=== PATIENT | female | born 1970 | race Two or more races ===

== ENCOUNTER 2017-03-25 15:30 | Emergency (ER) | payer SELFPAY | END 2017-03-25 15:33 | disposition left against medical advice (07) | LOC: ED 15:30 | DX: Z53.21 Procedure and treatment not carried out due to patient leaving prior to being seen by health care provider (principal) ==

== ENCOUNTER 2017-11-28 09:40 | Emergency (ER) | payer OTHER ==
[2017-11-28 09:49] VITALS: BP 138/117
--- NOTE | 2017-11-28 10:02 | ED Physician Documentation ---
PD HPI HEENT - Stated complaint Stated Complaint: MOUTH PX - Chief complaint Chief Complaint: Heent - History obtained from History obtained from: Patient, Family - History of Present Illness Timing - onset: How many days ago (3) Timing - duration: Days (3) Timing - details: Gradual onset, Still present Location: Tooth Improves: Medication Worsens: Position, Temperatures Associated symptoms: Facial swelling, Headache. No: Fever Similar symptoms before: Diagnosis (dental abscess) Recently seen: Not recently seen - Additional information Additional information: 47-year-old female with extensive prior dental decay has developed left upper molar pain and pain in her gum with swelling. She has had this happen to her once previously while she was with her daughter and this improved rapidly with oral antibiotic. Review of Systems Constitutional: denies: Fever Eyes: denies: Decreased vision Ears: denies: Ear pain Nose: reports: Congestion Throat: reports: Dental pain / toothache. denies: Sore throat Cardiac: denies: Chest pain / pressure Respiratory: reports: Cough GI: denies: Vomiting PD PAST MEDICAL HISTORY - Present Medications Home Medications: Ambulatory Orders Medication Instructions Recorded Confirmed Amoxicillin 875 mg PO BID #14 tablet 11/28/17 - Allergies Allergies/Adverse Reactions: Allergies Allergy/AdvReac Type Severity Reaction Status Date / Time No Known Drug Allergies Allergy Verified 05/09/13 18:52 - Social History Smoking Status: Former smoker PD ED PE NORMAL - Vitals Vital signs reviewed: Yes (Hypertensive) - General General: Alert and oriented X 3, No acute distress, Well developed/nourished - HEENT HEENT: Atraumatic, PERRL, EOMI, Other (There is extensive dental decay and missing teeth. #13 or 14 is loose and the gum overlying it is inflamed and tender without fluctuance or drainage. ) - Neck Neck: Supple, no meningeal sign, No bony TTP - Respiratory Respiratory: No respiratory distress - Derm Derm: Normal color, Warm and dry, No rash - Extremities Extremities: No deformity, No edema - Neuro Neuro: Alert and oriented X 3, nuclear medicine physician 2-12 intact, No motor deficit, No sensory deficit, Normal speech Eye Opening: Spontaneous Motor: Obeys Commands Verbal: Oriented GCS Score: 15 - Psych Psych: Normal mood, Normal affect PD ED PE EXPANDED - HEENT HEENT Visual: 1 - swelling, tenderness Results - Vitals Vitals: Vital Signs - 24 hr 11/28/17 09:45 Temperature 36.5 C Heart Rate 65 Respiratory 18 Rate Blood Pressure 138/117 H O2 Saturation 100 Oxygen O2 Source Room air PD MEDICAL DECISION MAKING - ED course Complexity details: considered differential, d/w patient, d/w family ED course: 47-year-old female with a dental infection has pain and swelling in her face she does not have fluctuance to the area she has had this happen previously and we will place her on some amoxicillin. She does have follow-up with the [facility]. Departure - Departure Disposition: Home, Self Care Clinical Impression: Dental abscess Condition: Stable Instructions: ED Abscess Dental Follow-Up: Usman Sutherland MD [Primary Care Provider] - Prescriptions: Amoxicillin 875 mg PO BID #14 tablet Comments: Today in the Emergency Department your blood pressure was elevated. This can happen from the stress of the visit itself, from a current illness or circumstance or from uncontrolled hypertension. If you take blood pressure medications take your usual mediations, have your blood pressure re-checked in an appropriate setting and follow up any elevation with your primary care doctor.
== END 2017-11-28 10:11 | disposition home or self-care (01) ==
LOC: ED 09:40
DX: K04.7 Periapical abscess without sinus (principal); R03.0 Elevated blood-pressure reading, without diagnosis of hypertension; Z87.891 Personal history of nicotine dependence
CPT/HCPCS: 99283

== ENCOUNTER 2017-12-16 15:39 | Emergency (ER) | payer OTHER | END 2017-12-16 16:03 | disposition left against medical advice (07) | LOC: ED 15:39 | DX: Z53.9 Procedure and treatment not carried out, unspecified reason (principal) ==

== ENCOUNTER 2018-05-26 07:38 | Emergency (ER) | payer MEDICAID, OTHER ==
[2018-05-26 07:49] VITALS: BP 141/95
[2018-05-26] MEDS ORDERED: ACETAMINOPHEN 325 MG TABLET PO STA (08:01)
[2018-05-26] MEDS ORDERED: AMOXICILLIN 250 MG CAPSULE PO STA (08:01)
[2018-05-26] MEDS ORDERED: IBUPROFEN 400 MG TABLET PO STA (08:01)
--- NOTE | 2018-05-26 08:04 | ED Physician Documentation ---
History of Present Illness - Stated complaint Stated Complaint: RT FACIAL SWELLING - Chief complaint Chief Complaint: Heent - Additonal information Additional information: hx from pt poor detition prior infections has dental appt next week but says she does not think she can afford the extraction as the quote was $450 pain and swelling upper r premolar no fever took a home HCG and it was neg 2 days ago Review of Systems Constitutional: denies: Fever Throat: reports: Dental pain / toothache : denies: Now EGA PD PAST MEDICAL HISTORY - Past Surgical History Past Surgical History: No - Present Medications Home Medications: Ambulatory Orders Medication Instructions Recorded Confirmed Amoxicillin 500 mg PO Q8H #30 capsule 05/26/18 - Allergies Allergies/Adverse Reactions: Allergies Allergy/AdvReac Type Severity Reaction Status Date / Time No Known Drug Allergies Allergy Verified 05/26/18 07:49 - Social History Does the pt smoke?: Yes Smoking Status: Former smoker Does the pt drink ETOH?: No Does the pt have substance abuse?: Yes - Immunizations Immunizations are current?: Yes - POLST Patient has POLST: No PD ED PE NORMAL - Vitals Vital signs reviewed: Yes - HEENT HEENT: Moist mucous membranes, Other (dental decay, some loose teeth, very TTP R upper premolar, some gum erythema, no visible abscess to drain, some cheek swelling and cervical adenpathy, no trismus or sublingual edema) - Cardiac Cardiac: RRR - Respiratory Respiratory: Clear bilaterally Results - Vitals Vitals: Vital Signs - 24 hr 05/26/18 05/26/18 07:46 08:39 Temperature 36.1 C L Heart Rate 119 H 71 Respiratory 18 14 Rate Blood Pressure 141/95 H O2 Saturation 100 100 Oxygen O2 Source Room air PD MEDICAL DECISION MAKING - ED course ED course: HR noted - pt is pain and anxious, has an infectious source but do not think the pt has systemic infection or sepsis, will rx ab PO outpt HR much better at dc - Sepsis Event Vital Signs: Vital Signs - 24 hr 05/26/18 05/26/18 07:46 08:39 Temperature 36.1 C L Heart Rate 119 H 71 Respiratory 18 14 Rate Blood Pressure 141/95 H O2 Saturation 100 100 Oxygen O2 Source Room air Departure - Departure Disposition: 01 Home, Self Care Clinical Impression: Dental abscess Condition: Good Instructions: ED Dental Abscess Facial Cellulitis Prescriptions: Amoxicillin 500 mg PO Q8H #30 capsule Comments: Follow up with your dentist as scheduled. Return if worse Forms: Activity restrictions Discharge Date/Time: 05/26/18 08:40
== END 2018-05-26 08:40 | disposition home or self-care (01) ==
LOC: ED 07:38
DX: K04.7 Periapical abscess without sinus (principal); Z87.891 Personal history of nicotine dependence
CPT/HCPCS: 99283; A9270

== ENCOUNTER 2018-09-22 09:40 | Emergency (ER) | payer MEDICAID ==
[2018-09-22 09:52] VITALS: BP 104/60
--- NOTE | 2018-09-22 11:46 | ED Physician Documentation ---
PD HPI HEENT - Stated complaint Stated Complaint: FACE SWELLING - Chief complaint Chief Complaint: Heent - History obtained from History obtained from: Patient - History of Present Illness Timing - onset: How many weeks ago (has had pain at two loose/wiggly teeth for few weeks. Has some swelling of right one. Concerned about infection. Does not have money for dentist. Has not tried calling [facility], did not know about it.) Timing - duration: Weeks Timing - details: Still present (worse the past couple of days, more consistent.), Waxing and waning Location: Tooth (two upper teeth are hurting, right and left sides.) Associated symptoms: No: Fever, Congestion Similar symptoms before: Diagnosis (cavities and dental infections) Recently seen: Not recently seen Review of Systems Constitutional: denies: Fever, Chills Nose: denies: Rhinorrhea / runny nose, Congestion Throat: reports: Dental pain / toothache. denies: Sore throat Respiratory: denies: Cough GI: denies: Nausea, Vomiting Skin: denies: Rash, Lesions PD PAST MEDICAL HISTORY - Past Medical History Cardiovascular: None Respiratory: None Neuro: None GI: Other - Past Surgical History Past Surgical History: No - Present Medications Home Medications: Ambulatory Orders Medication Instructions Recorded Confirmed Clindamycin HCl [Clindamycin 300MG 300 mg PO TID #21 capsule 09/22/18 CAP] Hydrocodone/Acetaminophen [[place] 1 each PO Q6H PRN #20 tablet 09/22/18 5-325 Tablet] Naproxen 375 mg PO BID #20 tablet 09/22/18 - Allergies Allergies/Adverse Reactions: Allergies Allergy/AdvReac Type Severity Reaction Status Date / Time No Known Drug Allergies Allergy Verified 09/22/18 09:52 - Social History Does the pt smoke?: Yes Smoking Status: Former smoker Does the pt drink ETOH?: No Does the pt have substance abuse?: Yes - Immunizations Immunizations are current?: Yes - POLST Patient has POLST: No PD ED PE NORMAL - Vitals Vital signs reviewed: Yes - General General: Alert and oriented X 3, No acute distress, Well developed/nourished - HEENT HEENT: No: Dentition benign (poor dentition generally. Two teeth upper, one on right and one on left, are very loos, with decay apparent of tooth. So presume the roots are decayed. She asks if I might just pull them out. Some swelling at base of right upper one, but no fluctuance felt. ) - Neck Neck: Supple, no meningeal sign, No adenopathy - Cardiac Cardiac: RRR, No murmur - Respiratory Respiratory: Clear bilaterally - Derm Derm: Normal color, Warm and dry - Neuro Neuro: Alert and oriented X 3, No motor deficit, Normal speech Results - Vitals Vitals: Oxygen O2 Source Room air PD MEDICAL DECISION MAKING - ED course Complexity details: considered differential (she has very loose tooth, wiggles. Tempting to just pull it out as she is requesting, but I affirmed with her that that is not in our usual scope of practice and we don't have the tools to do it correctly, is for dentist to do. ), d/w patient Departure - Departure Disposition: 01 Home, Self Care Clinical Impression: Infected dental caries Condition: Stable Record reviewed to determine appropriate education?: Yes Instructions: ED Cavity Dental Follow-Up: [facility] [Provider Group] Prescriptions: Clindamycin HCl [Clindamycin 300MG CAP] 300 mg PO TID #21 capsule Hydrocodone/Acetaminophen [[place] 5-325 Tablet] 1 each PO Q6H PRN #20 tablet PRN Reason: Pain Naproxen 375 mg PO BID #20 tablet Comments: Call [facility] in [place] [phone] For earliest appointment. For now we will treat the infection and inflammation with naproxen and clindamycin to take both with food so that do not bother her stomach. Add Tylenol or hydrocodone if needed for pain. Recheck if not improving over the next few days. Follow-up with the dental clinic for more definitive care of the teeth. Discharge Date/Time: 09/22/18 12:27
[2018-09-22] MEDS ORDERED: NAPROXEN 250 MG TABLET PO STA (12:12)
[2018-09-22] MEDS ORDERED: HYDROcod/ACETAM 5/325 MG TABLET PO STA (12:12)
[2018-09-22] MEDS ORDERED: CLINDAMYCIN 150 MG CAPSULE PO STA (12:12)
== END 2018-09-22 12:27 | disposition home or self-care (01) ==
LOC: ED 09:40
DX: K02.9 Dental caries, unspecified (principal); K04.7 Periapical abscess without sinus; Z87.891 Personal history of nicotine dependence
CPT/HCPCS: 99283; A9270

== ENCOUNTER 2018-10-02 04:53 | Emergency (ER) | payer MEDICAID ==
--- NOTE | 2018-10-02 05:07 | ED Physician Documentation ---
PD HPI FEMALE - Stated complaint Stated Complaint: FEMALE - Chief complaint Chief Complaint: UTI - History obtained from History obtained from: Patient - History of Present Illness Timing - onset: Last night Timing - details: Gradual onset Associated symptoms: Dysuria, Urinary frequency. No: Fever Contributing factors: No: Recently seen: Not recently seen Review of Systems Constitutional: denies: Fever GI: denies: Abdominal Pain : denies: Dysuria, Frequency Musculoskeletal: denies: Back pain PD PAST MEDICAL HISTORY - Past Medical History Cardiovascular: None Respiratory: None Neuro: None GI: Other - Past Surgical History Past Surgical History: No - Present Medications Home Medications: Ambulatory Orders Medication Instructions Recorded Confirmed Clindamycin HCl [Clindamycin 300MG 300 mg PO TID #21 capsule 09/22/18 10/02/18 CAP] Hydrocodone/Acetaminophen [[place] 1 each PO Q6H PRN #20 tablet 09/22/18 10/02/18 5-325 Tablet] Naproxen 375 mg PO BID #20 tablet 09/22/18 10/02/18 Cephalexin [Keflex] 500 mg PO Q6H #27 capsule 10/02/18 Phenazopyridine HCl [Pyridium] 200 mg PO TID PRN #6 tablet 10/02/18 - Allergies Allergies/Adverse Reactions: Allergies Allergy/AdvReac Type Severity Reaction Status Date / Time No Known Drug Allergies Allergy Verified 10/02/18 04:58 - Social History Does the pt smoke?: Yes Smoking Status: Former smoker Does the pt drink ETOH?: No Does the pt have substance abuse?: Yes - Immunizations Immunizations are current?: Yes - POLST Patient has POLST: No PD ED PE NORMAL - Vitals Vital signs reviewed: Yes - General General: Alert and oriented X 3, No acute distress, Well developed/nourished - Abdomen Abdomen: Soft, Non tender - Back Back: No CVA TTP Results - Vitals Vitals: Vital Signs - 24 hr 10/02/18 04:56 Temperature 36.2 C L Heart Rate 67 Respiratory 16 Rate Blood Pressure 106/57 L O2 Saturation 100 Oxygen O2 Source Room air - Labs Labs: Laboratory Tests 10/02/18 05:15 Urine Color YELLOW Urine Clarity HAZY Urine pH 6.0 Ur Specific [place] >=1.030 H Urine Protein 30 H Urine Glucose (UA) NEGATIVE Urine Ketones NEGATIVE Urine Occult Blood MODERATE H Urine Nitrite NEGATIVE Urine Bilirubin NEGATIVE Urine Urobilinogen 0.2 (NORMAL) Ur Leukocyte Esterase SMALL H Urine RBC 6-10 H Urine WBC >25 H Ur Squamous Epith Cells FEW Squamous Urine Bacteria Few Ur Microscopic Review INDICATED Urine Culture Comments INDICATED Urine HCG, Qual NEGATIVE PD MEDICAL DECISION MAKING - ED course Complexity details: reviewed old records, considered differential, d/w patient ED course: c/o dysuria, urinary frequency with sensation of incomplete voiding. symptoms started last night. She was T+R from [facility] ED 10 days ago, rx naproxen, vicodin, and clindamycin for dental-related c/o. She says the dental pain has improved. She has all three of the prescriptions with her and I note there are still several doses of each of the three medications in their respective bottles. I explained that the pain medications are as needed, but the antibiotic (Clindamycin) should have been finished by now if taken as prescribed. Patient says she didn't realize the importance of taking the antibiotic exactly as prescribed. I recommended she stop the clindamycin and take keflex, which should have adequate coverage for both UTI and dental infection. I instructed her to take the keflex as prescribed until the bottle is empty unless she has adverse effects. Departure - Departure Disposition: 01 Home, Self Care Clinical Impression: Urinary tract infection Condition: Good Instructions: ED UTI Cystitis Female Prescriptions: Cephalexin [Keflex] 500 mg PO Q6H #27 capsule Phenazopyridine HCl [Pyridium] 200 mg PO TID PRN #6 tablet PRN Reason: dysuria Discharge Date/Time: 10/02/18 05:59
[2018-10-02 05:10] VITALS: BP 106/57
[2018-10-02 05:23] LABS: BILIRUBIN,URINE NEGATIVE (NEGATIVE); GLUCOSE, URINE (UA) NEGATIVE (NEGATIVE); KETONES,URINE (UA) NEGATIVE (NEGATIVE); LEUKOCYTE ESTERASE, URINE SMALL (NEGATIVE); NITRITE,URINE NEGATIVE (NEGATIVE); OCCULT BLOOD,URINE MODERATE (NEGATIVE); PROTEIN,URINE 30 mg/dL (NEGATIVE); UROBILINOGEN,URINE 0.2 (NORMAL) E.U./dL (NORMAL)
[2018-10-02 05:26] LABS: CLARITY,URINE HAZY (CLEAR); HCG UR QUAL NEGATIVE
[2018-10-02 05:29] LABS: BACTERIA,URINE Few /HPF (None Seen); SQUAMOUS EPITHELIAL CELL,UR FEW Squamous (<= Few)
[2018-10-02] MEDS ORDERED: cephALEXin 250 MG CAPSULE PO STA (05:45)
[2018-10-02] MEDS ORDERED: PHENAZOPYRIDINE 100 MG TABLET PO STA (05:45)
== END 2018-10-02 05:59 | disposition home or self-care (01) ==
LOC: ED 04:53
DX: N39.0 Urinary tract infection, site not specified (principal); Z87.891 Personal history of nicotine dependence
CPT/HCPCS: 81001; 81025; 87086; 87181; 99283; A9270; 81003

== ENCOUNTER 2019-06-04 11:30 | Emergency (ER) | payer MEDICAID ==
[2019-06-04 11:47] VITALS: BP 105/65
[2019-06-04 12:31] LABS: BILIRUBIN,URINE NEGATIVE (NEGATIVE); GLUCOSE, URINE (UA) NEGATIVE (NEGATIVE); KETONES,URINE (UA) NEGATIVE (NEGATIVE); LEUKOCYTE ESTERASE, URINE SMALL (NEGATIVE); NITRITE,URINE NEGATIVE (NEGATIVE); OCCULT BLOOD,URINE SMALL (NEGATIVE); PROTEIN,URINE TRACE mg/dL (NEGATIVE); UROBILINOGEN,URINE 0.2 (NORMAL) E.U./dL (NORMAL)
[2019-06-04 12:33] LABS: CLARITY,URINE CLOUDY (CLEAR); HCG UR QUAL NEGATIVE
[2019-06-04 12:40] LABS: BACTERIA,URINE Few /HPF (None Seen); RBC,URINE 0-5 /HPF (0-5); SQUAMOUS EPITHELIAL CELL,UR FEW Squamous (<= Few)
--- NOTE | 2019-06-04 12:49 | ED Physician Documentation ---
History of Present Illness - Stated complaint Stated Complaint: FEMALE - Chief complaint Chief Complaint: General - History obtained from History obtained from: Patient - Additonal information Additional information: Patient is a 48-year-old female presenting with less than 1 day of suprapubic tenderness that is now resolved but is otherwise associated with dysuria, frequency, urgency and incomplete emptying.Patient denies fever, back pain, nausea, vomiting. Patient's last bowel movement was yesterday. Patient's last menstrual period was about 1 month ago within normal limits. No other improving or worsening factors noted. Review of Systems Constitutional: denies: Fever GI: reports: Abdominal Pain. denies: Nausea, Vomiting, Diarrhea : reports: Dysuria, Frequency, Hesitancy PD PAST MEDICAL HISTORY - Past Medical History Cardiovascular: None Respiratory: None Neuro: None GI: Other - Past Surgical History Past Surgical History: No - Present Medications Home Medications: Ambulatory Orders Medication Instructions Recorded Confirmed Nitrofurantoin Monohyd/M-Cryst 100 mg PO BID 7 Days capsule 06/04/19 [Macrobid 100 mg Capsule] - Allergies Allergies/Adverse Reactions: Allergies Allergy/AdvReac Type Severity Reaction Status Date / Time No Known Drug Allergies Allergy Verified 06/04/19 11:47 - Social History Does the pt smoke?: Yes Smoking Status: Former smoker Does the pt drink ETOH?: No Does the pt have substance abuse?: Yes - Immunizations Immunizations are current?: Yes - POLST Patient has POLST: No PD ED PE NORMAL - Vitals Vital signs reviewed: Yes - General General: Alert and oriented X 3, No acute distress, Well developed/nourished - HEENT HEENT: Atraumatic, Moist mucous membranes - Neck Neck: Supple, no meningeal sign - Respiratory Respiratory: No respiratory distress - Abdomen Abdomen: Soft, Non tender, Non distended - Back Back: No CVA TTP - Derm Derm: Normal color, Warm and dry, No rash - Extremities Extremities: No deformity, No tenderness to palpate - Neuro Neuro: Alert and oriented X 3, No motor deficit, No sensory deficit - Psych Psych: Normal mood, Normal affect Results - Vitals Vitals: Vital Signs - 24 hr 06/04/19 11:45 Temperature 36.5 C Heart Rate 58 L Respiratory 17 Rate Blood Pressure 105/65 O2 Saturation 100 Oxygen O2 Source Room air - Labs Labs: Laboratory Tests 06/04/19 11:47 Urine Color YELLOW Urine Clarity CLOUDY Urine pH 7.0 Ur Specific [place] 1.010 Urine Protein TRACE Urine Glucose (UA) NEGATIVE Urine Ketones NEGATIVE Urine Occult Blood SMALL H Urine Nitrite NEGATIVE Urine Bilirubin NEGATIVE Urine Urobilinogen 0.2 (NORMAL) Ur Leukocyte Esterase SMALL H Urine RBC 0-5 Urine WBC 11-25 H Ur Squamous Epith Cells FEW Squamous Urine Bacteria Few Ur Microscopic Review INDICATED Urine Culture Comments INDICATED Urine HCG, Qual NEGATIVE PD MEDICAL DECISION MAKING - ED course Complexity details: reviewed old records, reviewed results, considered differential, d/w patient ED course: Patient presenting with uncomplicated UTI. Do not have high suspicion for pyelonephritis or nephrolithiasis at this time. Also low suspicion for , ectopic , ovarian pathology, other pelvic pathology or intra-abdominal complications. Physical exam is extremely benign. Discussed use of oral antibiotics, other supportive cares, return precautions and follow- up. Patient voiced understanding and is comfortable with discharge plan. Departure - Departure Disposition: 01 Home, Self Care Clinical Impression: Urinary tract infection Qualifiers: Urinary tract infection type: acute cystitis Hematuria presence: without hematuria Qualified Code(s): N30.00 - Acute cystitis without hematuria Condition: Good Instructions: ED UTI Cystitis Female Follow-Up: your,doctor [Other] - Within 3 Days Prescriptions: Nitrofurantoin Monohyd/M-Cryst [Macrobid 100 mg Capsule] 100 mg PO BID 7 Days capsule Comments: Recommend hydration, healthy diet, and follow-up with primary care physician in next 2 to 3 days. Please take antibiotics as prescribed to treat bladder infection. Recommend taking antibiotics with small amount of food to avoid upset stomach. Return to ED sooner if experience worsening symptoms or have other concerns.
== END 2019-06-04 13:00 | disposition home or self-care (01) ==
LOC: ED 11:30
DX: N30.00 Acute cystitis without hematuria (principal); Z87.891 Personal history of nicotine dependence
CPT/HCPCS: 81001; 81003; 81025; 87077; 87086; 87181; 99283

== ENCOUNTER 2020-11-10 18:18 | Outpatient (CLI) | payer MEDICAID | END 2020-11-10 18:19 | disposition critical access hospital (66) | LOC: EMS 18:18 | PROVIDERS: ATTEND Surgery | DX: Z04.6 Encounter for general psychiatric examination, requested by authority (principal) | CPT/HCPCS: A0425; A0429; A0999 ==

== ENCOUNTER 2020-11-10 18:44 | Inpatient (IN) | payer MEDICAID ==
[~2020-11-10 18:44] MED LIST: KETAMINE 500 MG/10 ML VIAL IM STA
[2020-11-10] MEDS ORDERED: OLANZapine 10 MG VIAL IM STA (18:45)
[2020-11-10] MEDS ORDERED: OLANZapine 10 MG VIAL IM ONE (18:57)
--- NOTE | 2020-11-10 18:57 | ED Physician Documentation ---
PD HPI MHE - Stated complaint Stated Complaint: MHE - History obtained from History obtained from: EMS - Additional information Additional information: 50-year-old woman was brought in by ambulance. Reportedly laying in the road saying that she was Felipe and her heavenly father had told her to lay in the road. Initially was uncooperative with paramedics, but reportedly relatively calm during her ambulance stay. Initial evaluation was in the ambulance bay because she had become quite agitated getting out of the ambulance and is actively fighting paramedics. No history is available from the patient directly as she is fighting and nonverbal, that said review of the chart does not show previous visits for mental health issues. Review of Systems Unable to obtain: Uncooperative PD PAST MEDICAL HISTORY - Past Medical History Cardiovascular: None Respiratory: None Neuro: None GI: Other - Past Surgical History Past Surgical History: No - Present Medications Home Medications: Ambulatory Orders Medication Instructions Recorded Confirmed No Known Home Medications 11/10/20 11/10/20 - Allergies Allergies/Adverse Reactions: Allergies Allergy/AdvReac Type Severity Reaction Status Date / Time No Known Drug Allergies Allergy Verified 06/04/19 11:47 - Social History Does the pt smoke?: Yes Smoking Status: Former smoker Does the pt drink ETOH?: No Does the pt have substance abuse?: Yes - Immunizations Immunizations are current?: Yes - POLST Patient has POLST: No PD ED PE NORMAL - Vitals Vital signs reviewed: Yes - General General: Other (She is thrashing about and fighting with the paramedics. She seems quite strong with excellent strength in all 4 extremities.) - HEENT HEENT: Other (Pupils slightly dilated but reactive) - Neck Neck: Supple, no meningeal sign, No bony TTP - Cardiac Cardiac: RRR, No murmur - Respiratory Respiratory: No respiratory distress, Clear bilaterally - Abdomen Abdomen: Non tender - Back Back: No CVA TTP, No spinal TTP - Derm Derm: Normal color, Warm and dry - Extremities Extremities: No edema, No calf tenderness / cord - Neuro Eye Opening: Spontaneous Motor: Localizes to Pain Verbal: Incomprehensible GCS Score: 11 Results - Vitals Vitals: Vital Signs - 24 hr 11/10/20 11/10/20 11/10/20 18:59 19:04 19:29 Temperature 37.5 C 37.5 C Heart Rate 112 H 105 H 90 Respiratory 30 H 24 14 Rate Blood Pressure 130/78 130/91 H 108/53 L O2 Saturation 97 97 100 11/10/20 11/10/20 19:59 20:29 Temperature 36.8 C 36.7 C Heart Rate 82 88 Respiratory 20 20 Rate Blood Pressure 90/59 L 102/52 L O2 Saturation 100 100 Oxygen O2 Source Room air - Labs Labs: Laboratory Tests 11/10/20 11/10/20 11/10/20 19:20 19:20 19:20 WBC 13.6 H RBC 3.92 L Hgb 13.0 Hct 38.8 MCV 99.0 MCH 33.2 H MCHC 33.5 RDW 12.5 Plt Count 341 MPV 9.8 Neut # (Auto) 11.4 H Lymph # (Auto) 0.9 L [place] # (Auto) 1.2 H Eos # (Auto) 0.0 Baso # (Auto) 0.1 Absolute Nucleated RBC 0.00 Nucleated RBC % 0.0 Sodium 136 Potassium 3.4 L Chloride 101 Carbon Dioxide 19 L Anion Gap 16.0 H BUN 33 H Creatinine 1.1 H Estimated GFR (MDRD) 53 L Glucose 105 H Calcium 9.6 Total Bilirubin 2.8 H AST 60 H ALT 31 Alkaline Phosphatase 63 Total Creatine Kinase 1250 H* Total Protein 7.5 Albumin 4.9 Globulin 2.6 Albumin/Globulin Ratio 1.9 Lipase 21 L TSH 2.23 Urine Color Urine Clarity Urine pH Ur Specific [facility] Urine Protein Urine Glucose (UA) Urine Ketones Urine Occult Blood Urine Nitrite Urine Bilirubin Urine Urobilinogen Ur Leukocyte Esterase Ur Microscopic Review Urine Culture Comments Urine HCG, Qual Nasal Adenovirus (PCR) Nasal B. parapertussis DNA (PCR) Nasal Coronavir 229E PCR Nasal Coronavir HKU1 PCR Nasal Coronavir NL63 PCR Nasal Coronavir OC43 PCR Nasal Enterovir/Rhinovir PCR Nasal Influenza B PCR Nasal Influenza A PCR Nasal Parainfluen 1 PCR Nasal Parainfluen 2 PCR Nasal Parainfluen 3 PCR Nasal Parainfluen 4 PCR Nasal RSV (PCR) Nasal B.pertussis DNA PCR Nasal C.pneumoniae (PCR) Hamzah Human Metapneumo PCR Nasal M.pneumoniae (PCR) Nasal SARS-CoV-2 (PCR) Salicylates < 6.0 Urine Opiates Screen Ur Oxycodone Screen Urine Methadone Screen Ur Propoxyphene Screen Acetaminophen < 10 L Ur Barbiturates Screen Ur Tricyclics Screen Ur Phencyclidine Scrn Ur Amphetamine Screen U Methamphetamines Scrn U Benzodiazepines Scrn Urine Cocaine Screen U Cannabinoids Screen Ethyl Alcohol < 5.0 11/10/20 11/10/20 19:45 19:58 WBC RBC Hgb Hct MCV MCH MCHC RDW Plt Count MPV Neut # (Auto) Lymph # (Auto) [place] # (Auto) Eos # (Auto) Baso # (Auto) Absolute Nucleated RBC Nucleated RBC % Sodium Potassium Chloride Carbon Dioxide Anion Gap BUN Creatinine Estimated GFR (MDRD) Glucose Calcium Total Bilirubin AST ALT Alkaline Phosphatase Total Creatine Kinase Total Protein Albumin Globulin Albumin/Globulin Ratio Lipase TSH Urine Color DARK YELLOW Urine Clarity HAZY Urine pH 5.5 Ur Specific [facility] >=1.030 H Urine Protein 30 H Urine Glucose (UA) NEGATIVE Urine Ketones 40 H Urine Occult Blood TRACE-INTA Urine Nitrite NEGATIVE Urine Bilirubin MODERATE H Urine Urobilinogen 0.2 (NORMAL) Ur Leukocyte Esterase NEGATIVE Ur Microscopic Review NOT INDICATED Urine Culture Comments NOT INDICATED Urine HCG, Qual NEGATIVE Nasal Adenovirus (PCR) NOT DETECTED Nasal B. parapertussis DNA (PCR) NOT DETECTED Nasal Coronavir 229E PCR NOT DETECTED Nasal Coronavir HKU1 PCR NOT DETECTED Nasal Coronavir NL63 PCR NOT DETECTED Nasal Coronavir OC43 PCR NOT DETECTED Nasal Enterovir/Rhinovir PCR NOT DETECTED Nasal Influenza B PCR NOT DETECTED Nasal Influenza A PCR NOT DETECTED Nasal Parainfluen 1 PCR NOT DETECTED Nasal Parainfluen 2 PCR NOT DETECTED Nasal Parainfluen 3 PCR NOT DETECTED Nasal Parainfluen 4 PCR NOT DETECTED Nasal RSV (PCR) NOT DETECTED Nasal B.pertussis DNA PCR NOT DETECTED Nasal C.pneumoniae (PCR) NOT DETECTED Hamzah Human Metapneumo PCR NOT DETECTED Nasal M.pneumoniae (PCR) NOT DETECTED Nasal SARS-CoV-2 (PCR) NOT DETECTED Salicylates Urine Opiates Screen NEGATIVE Ur Oxycodone Screen NEGATIVE Urine Methadone Screen NEGATIVE Ur Propoxyphene Screen NEGATIVE Acetaminophen Ur Barbiturates Screen NEGATIVE Ur Tricyclics Screen NEGATIVE Ur Phencyclidine Scrn NEGATIVE Ur Amphetamine Screen NEGATIVE U Methamphetamines Scrn NEGATIVE U Benzodiazepines Scrn NEGATIVE Urine Cocaine Screen NEGATIVE U Cannabinoids Screen POSITIVE H Ethyl Alcohol PD MEDICAL DECISION MAKING - ED course ED course: 50-year-old woman presents by ambulance for an acute psychosis. She is uncooperative with physical and history. Required both chemical and physical restraint for patient and staff safety. Labs were drawn and notable for seemingly modest rhabdomyolysis but actually has some acute kidney injury noting that her baseline creatinine is about 0.8 with high BUN. Surprisingly her methamphetamine screen is negative, UDS only positive for marijuana. No alcohol on board. Hard to say at this point if this is a drug related psychosis or a new organic psychosis. Given the acute kidney injury and rhabdomyolysis she will be admitted for further evaluation and treatment. And I spoke with Dr. Ventura for same at 8:43 PM. She was administered 1 L of saline wide open and then 250 mL/h here. Departure - Departure Disposition: [facility] DC/Xfer Clinical Impression: JUAN (acute kidney injury) Psychosis Qualifiers: Psychosis type: unspecified psychosis type Qualified Code(s): F29 - Unspecified psychosis not due to a substance or known physiological condition Rhabdomyolysis Qualifiers: Rhabdomyolysis type: non-traumatic Qualified Code(s): M62.82 - Rhabdomyolysis Condition: Fair Face to Face for Restraints - Immediate Situation Face to Face Evaluation Date: 11/10/20 Face to Face Evaluation Time: 18:56 Restraint Situation: Locking, Physical Hold, Chemical Patient's Reactions to the Intervention: Fighting restraints, Other (Agitated, fighting with staff, trying to hit staff) - Behavioral Condition Attitude: Other (agitated, uncooperative) Behavior: Uncooperative, Agitated Orientation: Not oriented to person, place, time, and situation Mood: Angry - Evaluation Review of Systems: Unable to review systems as she is nonverbal Pertinent History/Illicit Drugs/Medications/Results: None known, methamphetamine suspected. - Plan Need to Continue or Terminate Violent or Chemical Restraint: Will need to continue both physical and chemical restraints until calmer.
[2020-11-10] MEDS ORDERED: LORazepam 2 MG/ML VIAL IM STA (19:06)
[2020-11-10 19:42] LABS: BASOPHILS # (AUTO) 0.1 10^3/uL (0.0-0.1); BASOPHILS % (AUTO) 0.4 %; EOSINOPHILS % (AUTO) 0.1 %; LYMPHOCYTES # (AUTO) 0.9 10^3/uL (1.5-3.5); LYMPHOCYTES % (AUTO) 6.9 %; MEAN CORPUSCULAR HEMOGLOBIN 33.2 pg (27.0-31.0); MEAN CORPUSCULAR HGB CONC 33.5 g/dL (32.0-36.0); MEAN PLATELET VOLUME 9.8 fL (7.9-10.8); MONOCYTES # (AUTO) 1.2 10^3/uL (0.0-1.0); MONOCYTES % (AUTO) 8.5 %; NEUTROPHILS # (AUTO) 11.4 10^3/uL (1.5-6.6); NEUTROPHILS % (AUTO) 83.8 %; PLT - PLATELET COUNT 341 10^3/uL (130-450); RED BLOOD COUNT 3.92 10^6/uL (4.20-5.40); RED CELL DISTRIBUTION WIDTH 12.5 % (12.0-15.0); WHITE BLOOD COUNT 13.6 x10^3/uL (4.8-10.8)
[2020-11-10 19:52] LABS: MUDS CUTOFF CONCENTRATIONS CUTOFF CONC BELOW:
[2020-11-10 19:55] LABS: BILIRUBIN,URINE MODERATE (NEGATIVE); GLUCOSE, URINE (UA) NEGATIVE (NEGATIVE); KETONES,URINE (UA) 40 mg/dL (NEGATIVE); LEUKOCYTE ESTERASE, URINE NEGATIVE (NEGATIVE); NITRITE,URINE NEGATIVE (NEGATIVE); OCCULT BLOOD,URINE TRACE-INTA (NEGATIVE); PH,URINE 5.5 PH (5.0-7.5); PROTEIN,URINE 30 mg/dL (NEGATIVE); UROBILINOGEN,URINE 0.2 (NORMAL) E.U./dL (NORMAL)
[2020-11-10 20:05] LABS: ACETAMINOPHEN < 10 ug/mL (10-30); ALBUMIN 4.9 g/dL (3.2-5.5); ALBUMIN/GLOBULIN RATIO 1.9 (1.0-2.2); ALKALINE PHOSPHATASE 63 IU/L (42-121); ALT ALANINE AMINOTRANSFERASE 31 IU/L (10-60); AST ASPARTATE AMINOTRANSFERASE 60 IU/L (10-42); BILIRUBIN,TOTAL 2.8 mg/dL (0.2-1.0); BUN - BLOOD UREA NITROGEN 33 mg/dL (6-20); CALCIUM 9.6 mg/dL (8.5-10.3); CARBON DIOXIDE - CO2 19 mmol/L (21-32); CHLORIDE 101 mmol/L (101-111); CK- CREATINE KINASE 1250 IU/L (22-269); CREATININE 1.1 mg/dL (0.4-1.0); GLUCOSE 105 mg/dL (70-100); LIPASE 21 U/L (22-51); SALICYLATE < 6.0 mg/dL; SODIUM 136 mmol/L (135-145); TOTAL PROTEIN 7.5 g/dL (6.7-8.2)
[2020-11-10] MEDS ORDERED: SODIUM CHLORIDE 0.9% 1,000 ML IV STA ×2 (20:06)
[2020-11-10 20:12] LABS: CLARITY,URINE HAZY (CLEAR); HCG UR QUAL NEGATIVE
[2020-11-10 20:13] LABS: AMPHETAMINE SCREEN,URINE NEGATIVE (NEGATIVE); BENZODIAZEPINES SCREEN, URINE NEGATIVE (NEGATIVE); COCAINE SCREEN URINE NEGATIVE (NEGATIVE); METHADONE SCREEN, URINE NEGATIVE (NEGATIVE); METHAMPHETAMINES SCREEN, URINE NEGATIVE (NEGATIVE); OPIATE SCREEN, URINE NEGATIVE (NEGATIVE); OXYCODONE SCREEN, URINE NEGATIVE (NEGATIVE); PROPOXYPHENE SCREEN, URINE NEGATIVE (NEGATIVE); TRICYCLIC ANTIDEPRESSANT,URINE NEGATIVE (NEGATIVE)
[2020-11-10] MEDS ORDERED: SODIUM CHLORIDE FLUSH 0.9% 10 ML SYRINGE IVP PRN (20:58)
[2020-11-10 21:08] LABS: C. PNEUMONIAE- RESP PCR PANEL NOT DETECTED
[2020-11-10] MEDS: FAMOTIDINE 20 MG/2 ML VIAL IVP SCH (22:05)
[2020-11-10] MEDS: DEXTROSE 5%-0.9% NACL 1,000 ML IV SCH (22:08)
--- NOTE | 2020-11-10 23:42 | HISTORY & PHYSICAL EXAMINATION ---
DATE OF SERVICE: 11/10/2020 Physician: Adriana Ventura MD HISTORY OF PRESENT ILLNESS: This is a 50-year-old white female with a history of smoking. She was at the age of 42. This patient was brought in by ambulance for multiple 911 calls because people reportedly saw her lying on the road and saying that she was :Felipe and that her heavenly father had told her to lie in the road". At the scene, she was initially not cooperative with paramedics, but was eventually brought in by ambulance calm; however, in transfer from ambulance into the ER, she became combative and agitated and started actively fighting the paramedics. We could not give any history since she was fighting and nonverbal, except for stating the reason that she was on the road. She has never had previous visits for mental health issues according to what our records show. She required physical restraints for violent behavor and IV sedation using Zyprexa and Ketamine, and was able to be calmed. Following this, she has intermittently awoken, and was put on soft restraints and would answer "okay" to the nurse, but would fall back asleep again. Details of what prewceded today's presentation, therefore, are not available because of her now being somnolent. In the ER, she was found to have rhabdomyolysis with CK of 1250 and acute kidney injury, mild, with a creatinine of 1.1, her baseline is 0.8. Her toxicology workup showed no methamphetamine, no alcohol, but positive marijuana. She is being admitted to inpatient status on the Hospitalist service for managing rhabdomyolysis, JUAN and acute psychosis. PAST MEDICAL HISTORY: Negative except smoking. MEDICATIONS: None ALLERGIES: None. SOCIAL HISTORY: She is a smoker, unknown amount, the record states there is no past alcohol abuse or drug abuse history. FAMILY HISTORY: Not available since she is obtunded and cannot answer questions. REVIEW OF SYSTEMS: This was done from chart review of prior notes and the pertinent positives are listed, the rest are negative. PHYSICAL EXAM GENERAL: Obtunded white female. She is in no distress. VITAL SIGNS: Blood pressure 103/67, heart rate 76 and regular, afebrile, room air saturation 100%. HEENT: She is somnolent, but arouses to name and to touch and murmurs a response or just a one word answer and then falls back asleep. Her lips are very dry and cracked. Her pupils are reactive and normal size. NECK: No JVD or carotid bruits. CHEST: Clear. HEART: Normal heart sounds without murmur. ABDOMEN: Soft. No organomegaly or distention. EXTREMITIES: No clubbing, cyanosis, or edema. NEUROLOGIC: Currently obtunded. LABORATORY DATA: Sodium 136, potassium 3.4, carbon dioxide 19, anion gap 16, BUN 33, creatinine 1.1, bilirubin 2.8, AST 60, ALT 31. CK 1250. Normal albumin of 4.9. Lipase normal at 21. TSH normal at 2.23. White blood count elevated at 13.6, hemoglobin 13, normal MCV of 99, normal platelet count of 341. Urinalysis showed high specific gravity, high protein, high ketones, moderate bilirubin, and no leukocyte esterase or nitrites, and no culture was indicated. Her [employer] showed negative COVID result. Her toxicology was negative entirely except for cannabis present. No imaging was done. No EKG was done. IMPRESSION/DIAGNOSES 1. Rhabdomyolysis. 2. Acute kidney injury. 3. Acute psychosis. 4. Hypokalemia. 5. Elevated bilirubin. 6. Elevated liver function tests. 7. Elevated white blood count, possibly a phase reactant since there appeared to be no signs of infection. 8. Tobacco user. PLAN: Admit the patient to Inpatient status. Order one-to-one monitoring because of her psychosis and continue with the soft restraints. Continue IV fluids that were started with a bolus in the ER for managing her rhabdomyolysis and JUAN. Follow her total CK and CMP daily. Depending on results of tomorrow's bilirubin and liver function tests, consideration for CT of the abdomen. If she is more awake, start a clear liquid diet to advance to a pureed diet, she will need to be fed tonight and then advance tomorrow as she awakens. She will need a Social Work consult regarding her psychosis and possible transfer to an inpatient psych location for management, once she is medically cleared. Nicotine patch will be ordered for cigarette urges. DEEP VENOUS THROMBOSIS PROPHYLAXIS: SCDs. CODE STATUS: FULL CODE. ATTESTATION: Patient is expected to be discharged or transferred to another facility within 96 hours: Yes. TD: 11/10/2020 22:30 MTDDaniel
[2020-11-11] MEDS ORDERED: HALOPERIDOL 5 MG/ML VIAL IVP PRN (00:04)
[2020-11-11] MEDS: SODIUM CHLORIDE FLUSH 0.9% 10 ML SYRINGE IVP SCH ×4 (00:28→22:50)
[2020-11-11 05:46] LABS: BASOPHILS % (AUTO) 0.5 %; EOSINOPHILS # (AUTO) 0.2 10^3/uL (0.0-0.7); LYMPHOCYTES # (AUTO) 1.6 10^3/uL (1.5-3.5); LYMPHOCYTES % (AUTO) 18.9 %; MEAN CORPUSCULAR HEMOGLOBIN 33.4 pg (27.0-31.0); MEAN CORPUSCULAR HGB CONC 33.1 g/dL (32.0-36.0); MEAN CORPUSCULAR VOLUME 100.8 fL (81.0-99.0); MEAN PLATELET VOLUME 9.7 fL (7.9-10.8); MONOCYTES # (AUTO) 0.7 10^3/uL (0.0-1.0); MONOCYTES % (AUTO) 8.7 %; NEUTROPHILS # (AUTO) 5.8 10^3/uL (1.5-6.6); NEUTROPHILS % (AUTO) 69.7 %; PLT - PLATELET COUNT 287 10^3/uL (130-450); RED BLOOD COUNT 3.59 10^6/uL (4.20-5.40); RED CELL DISTRIBUTION WIDTH 12.6 % (12.0-15.0); WHITE BLOOD COUNT 8.4 x10^3/uL (4.8-10.8)
[2020-11-11 05:53] LABS: ALBUMIN 3.5 g/dL (3.2-5.5); ALBUMIN/GLOBULIN RATIO 1.4 (1.0-2.2); CALCIUM 8.4 mg/dL (8.5-10.3); CREATININE 0.7 mg/dL (0.4-1.0); MAGNESIUM 2.2 mg/dL (1.7-2.8)
[2020-11-11] MEDS: POTASSIUM CHLOR 10 MEQ/100 ML 10 MEQ/100 ML BAG IV SCH ×4 (07:01→11:12)
[2020-11-11] MEDS: DEXTROSE 5%-0.9% NACL 1,000 ML IV SCH ×2 (07:56→17:52)
[2020-11-11] MEDS: FAMOTIDINE 20 MG/2 ML VIAL IVP SCH ×2 (08:54→21:48)
[2020-11-11] MEDS ORDERED: ENOXAPARIN 40 MG/0.4 ML SYRINGE SUBQ SCH (09:00)
--- NOTE | 2020-11-11 12:46 | PHARMACY PROGRESS NOTE ---
- Best Possible Medication History Admit Date and Time: 11/10/202056 Processed by: Pharmacy Medication History completed: No Patient Interview: Pt unable to participate (Unable to interview patient at this time) Pt is unable to participate in medication interview. No records per insurance are available, pharmacy technician per diemMaurilio, attempted to reach pt contact but was unable to get through. No no home medications documented at this time. As the person ultimately responsible for medication therapy, providers are able to order a medication from an existing home medication list in [facility] via the "Reconcile Routine" prior to Confirmation of that medication by business support. Such practice is discouraged except when the physician, in their clinical judgment, deems that a medical need exists for a medication without regard to previous use.
--- NOTE | 2020-11-11 18:46 | PROVIDER PROGRESS NOTE ---
Assessment/Plan - Problem List (1) Rhabdomyolysis Qualifiers: Rhabdomyolysis type: non-traumatic Qualified Code(s): M62.82 - Rhabdomyolysis Assessment/Plan: On D5 plus normal saline. At 100 mils per hour. Improving. Patient's EKG today is 982. Down from 1250 at admission. (2) UJAN (acute kidney injury) Assessment/Plan: Resolved. Patient's creatinine today is 0.79 with a GFR of 89. (3) Psychosis Qualifiers: Psychosis type: unspecified psychosis type Qualified Code(s): F29 - Unspecified psychosis not due to a substance or known physiological condition Assessment/Plan: Patient had received ketamine On Zyprexa in the ED because she was combative in the ED. Upon arrival to the floor she was somewhat somnolent. By the time of my evaluation she was alert oriented x3 and able to carry out a full conversation. Patient will be seen by social work for a mental health eval once she is medically clear. Anticipating this to be done in 1 to 2 days. - Current Meds Current Meds: Current Medications Generic Name Dose Route Start Last Admin Trade Name Freida PRN Reason Stop Dose Admin Famotidine 20 mg 11/10/20 21:00 11/11/20 08:54 Famotidine 20 Mg/2 Ml Vial IVP 20 mg BID DENNYS Administration Dextrose/Sodium Chloride 1,000 mls @ 100 mls/hr 11/10/20 21:00 11/11/20 17:52 D5ns IV 100 mls/hr .Q10H DENNYS Administration Sodium Chloride 10 ml 11/11/20 01:00 11/11/20 14:39 Sodium Chloride Flush 0.9% 10 Ml Syringe IVP Not Given 0100,0900,1700 DENNYS - Lab Result Fish Bone Diagrams: 11/11/20 05:30 11/11/20 05:30 Subjective - Subjective Patient Reports: Other (She was resting comfortably in bed at time of exam. She was awake and alert. She did not seem to be in any distress. She tells me she has been hearing God's voice for the past couple of years. She also has been hearing the voices of family members who have . She denied ever being admitted t) Objective Vital Signs: Vital Signs - 24 hr 11/10/20 11/10/20 11/10/20 18:59 19:04 19:29 Temperature 37.5 C 37.5 C Heart Rate 112 H 105 H 90 Heart Rate [ Radial] Respiratory 30 H 24 14 Rate Blood Pressure 130/78 130/91 H 108/53 L Blood Pressure [Right Brachial artery] O2 Saturation 97 97 100 11/10/20 11/10/20 11/10/20 19:59 20:29 22:15 Temperature 36.8 C 36.7 C 36.1 C L Heart Rate 82 88 Heart Rate [ 76 Radial] Respiratory 20 20 14 Rate Blood Pressure 90/59 L 102/52 L Blood Pressure 103/67 [Right Brachial artery] O2 Saturation 100 100 100 11/11/20 11/11/20 11/11/20 00:00 07:26 15:59 Temperature 36.3 C L 36.4 C L 36.4 C L Heart Rate 58 L Heart Rate [ 77 57 L 72 Radial] Respiratory 14 18 18 Rate Blood Pressure Blood Pressure 109/54 L 104/59 L 104/46 L [Right Brachial artery] O2 Saturation 100 98 98 Oxygen O2 Source Room air I&O (Last 24 Hrs): Intake and Output Totals x24h 11/09/20 11/10/20 11/11/20 23:59 23:59 23:59 Intake Total 156.414 1107.333 Output Total 200 Balance 736.980 8305.333 General: Alert, Oriented x3, Cooperative, No acute distress HEENT: PERRLA, EOMI Neck: Supple, No JVD Neuro: Alert, Non Focal, Oriented Times 3, Other (Delusional) Cardiovascular: Regular rate, Normal S1, Normal S2 Respiratory: Chest non-tender, No respiratory distress, Breath sounds nml Abdomen: Normal bowel sounds, Soft, No tenderness Extremities: No clubbing, No cyanosis, No edema Skin: No rashes - Results Results: Laboratory Results WBC 8.4 x10^3/uL (4.8-10.8) 11/11/20 05:30 RBC 3.59 10^6/uL (4.20-5.40) L 11/11/20 05:30 Hgb 12.0 g/dL (12.0-16.0) 11/11/20 05:30 Hct 36.2 % (37.0-47.0) L 11/11/20 05:30 MCV 100.8 fL (81.0-99.0) H 11/11/20 05:30 MCH 33.4 pg (27.0-31.0) H 11/11/20 05:30 MCHC 33.1 g/dL (32.0-36.0) 11/11/20 05:30 RDW 12.6 % (12.0-15.0) 11/11/20 05:30 Plt Count 287 10^3/uL (130-450) 11/11/20 05:30 MPV 9.7 fL (7.9-10.8) 11/11/20 05:30 Neut # (Auto) 5.8 10^3/uL (1.5-6.6) 11/11/20 05:30 Lymph # (Auto) 1.6 10^3/uL (1.5-3.5) 11/11/20 05:30 [place] # (Auto) 0.7 10^3/uL (0.0-1.0) 11/11/20 05:30 Eos # (Auto) 0.2 10^3/uL (0.0-0.7) 11/11/20 05:30 Baso # (Auto) 0.0 10^3/uL (0.0-0.1) 11/11/20 05:30 Absolute Nucleated RBC 0.00 x10^3/uL 11/11/20 05:30 Nucleated RBC % 0.0 /100WBC 11/11/20 05:30 Sodium 138 mmol/L (135-145) 11/11/20 05:30 Potassium 3.1 mmol/L (3.5-5.0) L 11/11/20 05:30 Chloride 106 mmol/L (101-111) 11/11/20 05:30 Carbon Dioxide 23 mmol/L (21-32) 11/11/20 05:30 Anion Gap 9.0 (6-13) 11/11/20 05:30 BUN 22 mg/dL (6-20) H 11/11/20 05:30 Creatinine 0.7 mg/dL (0.4-1.0) 11/11/20 05:30 Estimated GFR (MDRD) 89 (>89) 11/11/20 05:30 Glucose 88 mg/dL (70-100) 11/11/20 05:30 Calcium 8.4 mg/dL (8.5-10.3) L 11/11/20 05:30 Magnesium 2.2 mg/dL (1.7-2.8) 11/11/20 05:30 Total Bilirubin 2.0 mg/dL (0.2-1.0) H 11/11/20 05:30 AST 45 IU/L (10-42) H 11/11/20 05:30 ALT 26 IU/L (10-60) 11/11/20 05:30 Alkaline Phosphatase 48 IU/L (42-121) 11/11/20 05:30 Total Creatine Kinase 982 IU/L (22-269) H 11/11/20 05:30 Total Protein 6.0 g/dL (6.7-8.2) L 11/11/20 05:30 Albumin 3.5 g/dL (3.2-5.5) 11/11/20 05:30 Globulin 2.5 g/dL (2.1-4.2) 11/11/20 05:30 Albumin/Globulin Ratio 1.4 (1.0-2.2) 11/11/20 05:30 Lipase 21 U/L (22-51) L 11/10/20 19:20 TSH 2.23 uIU/mL (0.34-5.60) 11/10/20 19:20 Urine Color DARK YELLOW 11/10/20 19:45 Urine Clarity HAZY (CLEAR) 11/10/20 19:45 Urine pH 5.5 PH (5.0-7.5) 11/10/20 19:45 Ur Specific [place] >=1.030 (1.002-1.030) H 11/10/20 19:45 Urine Protein 30 mg/dL (NEGATIVE) H 11/10/20 19:45 Urine Glucose (UA) NEGATIVE mg/dL (NEGATIVE) 11/10/20 19:45 Urine Ketones 40 mg/dL (NEGATIVE) H 11/10/20 19:45 Urine Occult Blood TRACE-INTA (NEGATIVE) 11/10/20 19:45 Urine Nitrite NEGATIVE (NEGATIVE) 11/10/20 19:45 Urine Bilirubin MODERATE (NEGATIVE) H 11/10/20 19:45 Urine Urobilinogen 0.2 (NORMAL) E.U./dL (NORMAL) 11/10/20 19:45 Ur Leukocyte Esterase NEGATIVE (NEGATIVE) 11/10/20 19:45 Ur Microscopic Review NOT INDICATED 11/10/20 19:45 Urine Culture Comments NOT INDICATED 11/10/20 19:45 Urine HCG, Qual NEGATIVE 11/10/20 19:45 Nasal Adenovirus (PCR) NOT DETECTED 11/10/20 19:58 Nasal B. parapertussis DNA (PCR) NOT DETECTED 11/10/20 19:58 Nasal Coronavir 229E PCR NOT DETECTED 11/10/20 19:58 Nasal Coronavir HKU1 PCR NOT DETECTED 11/10/20 19:58 Nasal Coronavir NL63 PCR NOT DETECTED 11/10/20 19:58 Nasal Coronavir OC43 PCR NOT DETECTED 11/10/20 19:58 Nasal Enterovir/Rhinovir PCR NOT DETECTED 11/10/20 19:58 Nasal Influenza B PCR NOT DETECTED 11/10/20 19:58 Nasal Influenza A PCR NOT DETECTED 11/10/20 19:58 Nasal Parainfluen 1 PCR NOT DETECTED 11/10/20 19:58 Nasal Parainfluen 2 PCR NOT DETECTED 11/10/20 19:58 Nasal Parainfluen 3 PCR NOT DETECTED 11/10/20 19:58 Nasal Parainfluen 4 PCR NOT DETECTED 11/10/20 19:58 Nasal RSV (PCR) NOT DETECTED 11/10/20 19:58 Nasal B.pertussis DNA PCR NOT DETECTED 11/10/20 19:58 Nasal C.pneumoniae (PCR) NOT DETECTED 11/10/20 19:58 Hamzah Human Metapneumo PCR NOT DETECTED 11/10/20 19:58 Nasal M.pneumoniae (PCR) NOT DETECTED 11/10/20 19:58 Nasal SARS-CoV-2 (PCR) NOT DETECTED 11/10/20 19:58 Salicylates < 6.0 mg/dL 11/10/20 19:20 Urine Opiates Screen NEGATIVE (NEGATIVE) 11/10/20 19:45 Ur Oxycodone Screen NEGATIVE (NEGATIVE) 11/10/20 19:45 Urine Methadone Screen NEGATIVE (NEGATIVE) 11/10/20 19:45 Ur Propoxyphene Screen NEGATIVE (NEGATIVE) 11/10/20 19:45 Acetaminophen < 10 ug/mL (10-30) L 11/10/20 19:20 Ur Barbiturates Screen NEGATIVE (NEGATIVE) 11/10/20 19:45 Ur Tricyclics Screen NEGATIVE (NEGATIVE) 11/10/20 19:45 Ur Phencyclidine Scrn NEGATIVE (NEGATIVE) 11/10/20 19:45 Ur Amphetamine Screen NEGATIVE (NEGATIVE) 11/10/20 19:45 U Methamphetamines Scrn NEGATIVE (NEGATIVE) 11/10/20 19:45 U Benzodiazepines Scrn NEGATIVE (NEGATIVE) 11/10/20 19:45 Urine Cocaine Screen NEGATIVE (NEGATIVE) 11/10/20 19:45 U Cannabinoids Screen POSITIVE (NEGATIVE) H 11/10/20 19:45 Ethyl Alcohol < 5.0 mg/dL 11/10/20 19:20 - Procedures Procedures: Procedures MANUAL ASSIST TAMMI NEC (05/10/13)
[2020-11-12] MEDS: DEXTROSE 5%-0.9% NACL 1,000 ML IV SCH ×2 (04:02→18:43)
[2020-11-12 06:00] LABS: BASOPHILS # (AUTO) 0.1 10^3/uL (0.0-0.1); BASOPHILS % (AUTO) 0.7 %; EOSINOPHILS # (AUTO) 0.1 10^3/uL (0.0-0.7); EOSINOPHILS % (AUTO) 1.6 %; HGB - HEMOGLOBIN 11.3 g/dL (12.0-16.0); LYMPHOCYTES # (AUTO) 1.7 10^3/uL (1.5-3.5); LYMPHOCYTES % (AUTO) 23.8 %; MEAN CORPUSCULAR HEMOGLOBIN 33.2 pg (27.0-31.0); MEAN CORPUSCULAR HGB CONC 32.7 g/dL (32.0-36.0); MEAN CORPUSCULAR VOLUME 101.8 fL (81.0-99.0); MEAN PLATELET VOLUME 9.8 fL (7.9-10.8); MONOCYTES # (AUTO) 0.7 10^3/uL (0.0-1.0); MONOCYTES % (AUTO) 9.3 %; NEUTROPHILS # (AUTO) 4.5 10^3/uL (1.5-6.6); NEUTROPHILS % (AUTO) 64.3 %; PLT - PLATELET COUNT 274 10^3/uL (130-450); RED CELL DISTRIBUTION WIDTH 12.8 % (12.0-15.0)
[2020-11-12 06:10] LABS: ALBUMIN/GLOBULIN RATIO 1.4 (1.0-2.2); CALCIUM 7.9 mg/dL (8.5-10.3); CREATININE 0.7 mg/dL (0.4-1.0); TOTAL PROTEIN 5.1 g/dL (6.7-8.2)
[2020-11-12] MEDS: FAMOTIDINE 20 MG/2 ML VIAL IVP SCH (08:48)
[2020-11-12] MEDS: SODIUM CHLORIDE FLUSH 0.9% 10 ML SYRINGE IVP SCH ×2 (08:49→17:05)
--- NOTE | 2020-11-12 16:40 | Discharge Plan ---
Discharge Plan for SNF / [facility] - Discharge Plan And Transition Orders Condition: Fair Allergies and Adverse Reactions: Allergies Allergy/AdvReac Type Severity Reaction Status Date / Time No Known Drug Allergies Allergy Verified 06/04/19 11:47 - SNF / [facility] Transition Orders Medicare Certification Statement: I certify that [facility] Hospital nursing home care is medically necessary on a continuing basis for any of the conditions for which she/he is receiving care during hospitalization. Notify PCP of admission and forward orders to primary provider for signature. Other Notification Orders: Call PCP immediately if patient develops dyspnea, chest pain/tightness or edema. Additional Bowel Program Orders: If no BM after 2 days, nurse may give M.O.M. 30ml PO PRN and/or ducolax Supp 1 IL and/or SARAI 250mg P.O., and/or senna 1-2 tabs PO. On day 3 nurse may give repeat above order until residents constipation is resolved. Medication Orders: PLEASE REFER TO THE DISCHARGE MEDICATION LIST.
--- NOTE | 2020-11-12 16:44 | Discharge Plan ---
Discharge Plan Problem Reviewed?: Yes Disposition: 02 Transfer Acute Care Hosp Condition: Stable Diet: Regular Activity Restrictions: Activity as Tolerated Shower Restrictions: No (fall precaution) Instruction Topics: Dehydration, Injury Acute Kidney Dc No Smoking: If you smoke, Please STOP! Call for help.
--- NOTE | 2020-11-12 16:48 | Discharge Plan ---
"Discharge Plan for SNF / [facility] - Discharge Plan And Transition Orders Problem Reviewed?: Yes Disposition: 02 Transfer Acute Care Hosp Condition: Stable Allergies and Adverse Reactions: Allergies Allergy/AdvReac Type Severity Reaction Status Date / Time No Known Drug Allergies Allergy Verified 06/04/19 11:47 Health Concerns: dehydration/JUAN, psychosis/psychiatric presentation Plan of Treatment: keep pt hydration. transfer pt to [facility] for psychiatric assessment and treatment. Care Goals: stabilization and improvement of pt's medical conditions Assessment: discussed the care plan wit pt, pt understood. - SNF / [facility]O Transition Orders Admit to (Facility): [facility] Under the care of (Name): Medical provider of [facility] Discharge Diagnosis: rhabdomyolysis, dehydration, psychosis Medicare Certification Statement: I certify that [facility] long term care is medically necessary on a continuing basis for any of the conditions for which she/he is receiving care during hospitalization. Notify PCP of admission and forward orders to primary provider for signature. Other Notification Orders: Call PCP immediately if patient develops dyspnea, chest pain/tightness or edema. House Bowel Program: Yes Additional Bowel Program Orders: If no BM after 2 days, nurse may give M.O.M. 30ml PO PRN and/or ducolax Supp 1 IL and/or SARAI 250mg P.O., and/or senna 1-2 tabs PO. On day 3 nurse may give repeat above order until residents constipation is resolved. Annual Influenza Vaccine (between Jun 25 and January 22): Yes Two-step PPD per [facility] [id number] or approved exception documents: Yes Treatments & Other Orders: keep pt hydration, followup with psychiatric assessment and treatment. Medication Orders: PLEASE REFER TO THE DISCHARGE MEDICATION LIST. Insulin Orders?: No - Diet Type: Geriatric Texture: Regular Liquids: Thin May have monthly special meal: Yes - Therapies | Activity Rehabilitation Potential: Maximize functional status Activity: Activity as Tolerated"
--- NOTE | 2020-11-12 17:00 | DISCHARGE SUMMARY ---
Discharge Summary Admit Date: 11/10/20 Discharge Date: 11/12/20 Discharging Provider: Alfredito Cole Condition at Discharge: Stable Discharge Disposition: 02 Transfer Acute Care Hosp Discharge Facility Name: [facility] - DIAGNOSES Discharge Diagnoses with Status of Each Condition: (1) Rhabdomyolysis Resolved, After the patient was hydration in the hospital, patient's CK was down to close normal range. Patient denies any muscle pain. (2) JUAN (acute kidney injury) Resolved, creatinine is 0.7 (3) Psychosis Patient was combative, agitated, patient was required to have restrain. The patient was evaluated by Designated Crisis Responder. Patient presented as voluntary for inpatient treatment and was agreeable to this. Social work also evaluated patient. Patient was a transfer to [facility]. pt is alert and oriented now. - HPI History of Present Illness: This is a 50 years old female Who was seen by people she was lying on the load and saying she was Felipe and heavenly father. She was eventually brought by the ambulance to the ER. She became combative and agitated in ER. In the ER patient was found CK 1250 with creatinine 1.1, her baseline 0.8. Patient was admitted in the hospital for management of Rhabdomyolysis, dehydration with JUAN and acute psychosis. - HOSPITAL COURSE Hospital Course: Patient was admitted in the hospital for management of Rhabdomyolysis, dehydration with JUAN and acute psychosis. Patient was found combative, agitated, patient was required to have restrain in ER. After the patient had intravenous hydration, CK value was treaded down close the normal range and Patient's creatinine become normal range. Patient also become alert and orientated in the hospital. Patient was evaluated by social work, Designated Crisis Responder. Patient presented as voluntary for inpatient treatment and was agreeable to this. Patient was transferred to [facility] For further evaluation and treatment. - ALLERGIES Allergies/Adverse Reactions: Allergies Allergy/AdvReac Type Severity Reaction Status Date / Time No Known Drug Allergies Allergy Verified 06/04/19 11:47 - MEDICATIONS Home Medications: Ambulatory Orders Medication Instructions Recorded Confirmed No Known Home Medications 11/10/20 11/11/20 - PHYSICAL EXAM AT DISCHARGE General Appearance: positive: No acute distress, Alert. negative: Lethargic Eyes Bilateral: positive: Normal inspection, PERRL, No lid inflammation ENT: positive: ENT inspection nml, No signs of dehydration. negative: Purulent nasal drainage Neck: positive: Nml inspection, Trachea midline. negative: Thyromegaly, Tracheal deviation Respiratory: positive: Chest non-tender, No respiratory distress. negative: Wheezes, Rales, Rhonchi Cardiovascular: positive: Regular rate & rhythm, No murmur. negative: Tachycardia, Bradycardia, Systolic murmur, Diastolic murmur Peripheral Pulses: positive: 2+ Abdomen: positive: Non-tender, Nml bowel sounds, No distention. negative: Tenderness, Guarding, Rebound Back: positive: Nml inspection. negative: CVA tenderness (R), CVA tenderness (L) Skin: positive: Color nml, Warm, Dry. negative: Cyanosis, Diaphoresis, Pallor Extremities: positive: Non-tender, Full ROM, Nml appearance. negative: Calf tenderness Neurologic/Psychiatric: positive: Oriented x3, Motor nml, Sensation nml. negative: Weakness, Sensory loss, Facial droop, Slurred/abnml speech, Depressed mood/affect - LABS Result Diagrams: 11/12/20 05:37 11/12/20 05:37 - FOLLOW UP Follow Up: Patient was transferred to [facility] For further evaluation and treatment - TIME SPENT Time Spent in Discharge (Minutes): 30
[2020-11-12 18:19] VITALS: BP 110/69
[2020-11-12] MEDS ORDERED: FAMOTIDINE 20 MG TABLET PO SCH (21:00)
== END 2020-11-12 20:12 | disposition short-term general hospital (02) | DRG 885 ==
LOC: ED 18:44 → MS2 20:57
PROVIDERS: ADMIT Internal Medicine; ATTEND Nurse Practitioner Gerontology
DX: F23 Brief psychotic disorder (principal); N17.9 Acute kidney failure, unspecified; M62.82 Rhabdomyolysis; R17 Unspecified jaundice; Z78.1 Physical restraint status; F17.200 Nicotine dependence, unspecified, uncomplicated; E87.6 Hypokalemia; R74.8 Abnormal levels of other serum enzymes; D72.829 Elevated white blood cell count, unspecified; Z20.828 Contact with and (suspected) exposure to other viral communicable diseases; Z72.89 Other problems related to lifestyle
CPT/HCPCS: 0202U; 36415; 80053; 80306; 80307; 80320; 80329; 81003; 81025; 82550; 83690; 83735; 84443; 85025; 93005; 96360; 96372; 99281; 99285; J2060; 81001; 87086

== ENCOUNTER 2022-04-15 09:47 | Emergency (ER) | payer MEDICAID ==
[2022-04-15 10:04] VITALS: BP 113/66
[2022-04-15 10:21] LABS: BILIRUBIN,URINE NEGATIVE (NEGATIVE); GLUCOSE, URINE (UA) NEGATIVE (NEGATIVE); KETONES,URINE (UA) NEGATIVE (NEGATIVE); LEUKOCYTE ESTERASE, URINE SMALL (NEGATIVE); NITRITE,URINE NEGATIVE (NEGATIVE); OCCULT BLOOD,URINE MODERATE (NEGATIVE); PH,URINE 6.5 PH (5.0-7.5); PROTEIN,URINE TRACE mg/dL (NEGATIVE); UROBILINOGEN,URINE 0.2 (NORMAL) E.U./dL (NORMAL)
[2022-04-15 10:27] LABS: CLARITY,URINE SL. CLOUDY (CLEAR); HCG UR QUAL NEGATIVE
[2022-04-15 10:31] LABS: BACTERIA,URINE Few /HPF (None Seen); SQUAMOUS EPITHELIAL CELL,UR FEW Squamous (<= Few)
--- NOTE | 2022-04-15 11:01 | ED Physician Documentation ---
PD HPI FEMALE - Stated complaint Stated Complaint: FEMALE - Chief complaint Chief Complaint: UTI - History obtained from History obtained from: Patient - History of Present Illness Timing - onset: Yesterday Timing - duration: Days Timing - details: Abrupt onset, Still present Associated symptoms: Abdominal pain, Back pain, Dysuria. No: Vaginal pain, Vaginal bleeding Review of Systems Constitutional: denies: Fever, Chills, Myalgias GI: denies: Abdominal Pain : reports: Dysuria, Frequency. denies: Discharge Skin: denies: Rash PD PAST MEDICAL HISTORY - Past Medical History Cardiovascular: None Respiratory: None Neuro: None GI: Other - Past Surgical History Past Surgical History: No - Present Medications Home Medications: Ambulatory Orders Medication Instructions Recorded Confirmed Phenazopyridine HCl [Pyridium] 100 mg PO TID PRN #15 tablet 04/15/22 Sulfamethox/Trimeth 800/160 1 each PO BID #14 tablet 04/15/22 [Bactrim Ds 800/160] - Allergies Allergies/Adverse Reactions: Allergies Allergy/AdvReac Type Severity Reaction Status Date / Time No Known Drug Allergies Allergy Verified 04/15/22 10:01 - Social History Does the pt smoke?: Yes Smoking Status: Former smoker Does the pt drink ETOH?: No Does the pt have substance abuse?: Yes - Immunizations Immunizations are current?: Yes - POLST Patient has POLST: No PD ED PE NORMAL - Vitals Vital signs reviewed: Yes - General General: Alert and oriented X 3, No acute distress, Well developed/nourished - Abdomen Abdomen: Soft, Non tender - Female Female : Deferred - Back Back: No CVA TTP Results - Vitals Vitals: Oxygen O2 Source Room air - Labs Labs: Microbiology 04/15/22 10:10 Urine Culture - Preliminary Urine,Random Escherichia Coli Laboratory Tests 04/15/22 10:10 Urine Color YELLOW Urine Clarity SL. CLOUDY Urine pH 6.5 Ur Specific [place] 1.010 Urine Protein TRACE Urine Glucose (UA) NEGATIVE Urine Ketones NEGATIVE Urine Occult Blood MODERATE H Urine Nitrite NEGATIVE Urine Bilirubin NEGATIVE Urine Urobilinogen 0.2 (NORMAL) Ur Leukocyte Esterase SMALL H Urine RBC 6-10 H Urine WBC 11-25 H Ur Squamous Epith Cells FEW Squamous Urine Bacteria Few Ur Microscopic Review INDICATED Urine Culture Comments INDICATED Urine HCG, Qual NEGATIVE PD MEDICAL DECISION MAKING - ED course Complexity details: reviewed results, considered differential (symptoms c/w UTI and UA is loooking bad enough to correspond. ), d/w patient Departure - Departure Disposition: 01 Home, Self Care Clinical Impression: Cystitis Condition: Stable Record reviewed to determine appropriate education?: Yes Instructions: ED UTI Cystitis Female Prescriptions: Sulfamethox/Trimeth 800/160 [Bactrim Ds 800/160] 1 each PO BID #14 tablet Phenazopyridine HCl [Pyridium] 100 mg PO TID PRN #15 tablet PRN Reason: Abdominal Pain Comments: Your symptoms are sounding like a developing bladder infection. Your urine test is consistent with that so we can treat it with Bactrim antibiotic twice daily and phenazopyridine to help with urinary discomfort. To that you can add Tylenol or ibuprofen if needed for discomfort. I would anticipate improvement over the next 2 to 3 days and resolved by 3 to 5 days. Recheck if not better in that timeframe. I sent your prescriptions to [facility] pharmacy in [place]. Discharge Date/Time: 04/15/22 11:13
[2022-04-15] MEDS ORDERED: SULFAMETH/TRIMETH DS 800/160 MG TABLET PO STA (11:07)
[2022-04-15] MEDS ORDERED: PHENAZOPYRIDINE 100 MG TABLET PO STA (11:07)
[2022-04-15] MEDS ORDERED: ACETAMINOPHEN 325 MG TABLET PO STA (11:07)
== END 2022-04-15 11:13 | disposition home or self-care (01) ==
LOC: ED 09:47
DX: N30.90 Cystitis, unspecified without hematuria (principal); Z87.891 Personal history of nicotine dependence
CPT/HCPCS: 81001; 81025; 87086; 87181; 99282; 99283; A9270; 81003